=== PATIENT | male | born 1955 | race African-American/Black ===

== ENCOUNTER 2017-02-01 22:52 | Inpatient (IN) | payer BC ==
[~2017-02-01] VITALS: Ht 188 cm; Wt 102.0 kg
[~2017-02-01 22:52] MED LIST: AMLODIPINE BESYL5 MG PO; ASPIRIN LOW DOS81 M2 PO; ATORVASTATIN CA20 MG PO; BP MED; CEPHALEXIN500 MG PO; CIPRO500 MG PO; CORTISPORIN OTI10 M2 OU; DILTIAZEM240 MG PO; DOXYCYC MONO100 M1 PO; ENALAPRIL20 MG PO; GERITOL COMPLETE PO; GLIPIZIDE10 MG PO; HYDROCHLORO25 MG/TAB PO; JANUVIA100 MG PO; JOINT HEALT1 PO; K-TAB20 MEQ PO; KLOR-CON 1010 ME1 PO; LASIX 40 MG TAB40 MG PO; LEVEMIR FL100 UNIT/M SC; LEVEMIR FLEXPEN SC; LIPITOR20 M1 PO; LISINOP/HCTZ1 TA2 PO; MEDDOSEPAK PO; METFORMIN1000 MG PO; PROAIR HFA IN; VERAPAMIL240 M1 PO; VIAGRA50 MG PO; ZPAK PO
--- NOTE | 2017-02-01 23:10 | NUR ---
IN VIEW OF PATIENT'S LOW SPO2 HE WAS BROUGHT BACK TO ROOM 10 VIA W/C. DR. CHOWDHURY AND RESPIRATORY THERAPY NOTIFIED,
[2017-02-01] MEDS ORDERED: LEVEMIR FL100 UNIT/M SC (23:30)
[2017-02-01 23:41] LABS: HEMOGLOBIN 14.1 g/dl (14.0-18.0); IMMATURE GRANULOCYTES 0.4 % (0.0-1.0); MEAN CELL VOLUME 96.9 fL CALC (80.0-100.0); MEAN CORPUSCULAR HGB 31.1 pG CALC (26.0-32.0); NEUT# 3.06 thou/uL (1.82-7.42); RED BLOOD COUNT 4.54 mill/uL (4.70-6.10); RED CELL DISTRI WIDTH 14.6 % (11.5-15.5)
[2017-02-01 23:59] LABS: ALBUMIN 4.6 g/dL (3.2-5.0); ALKALINE PHOSPHATASE 53 u/l (38-126); ANION GAP 17 (6-22 (CALC)); BILIRUBIN, TOTAL 0.8 mg/dL (0.0-1.4); BUN 12 mg/dL (8-23); BUN/CREATININE RATIO 16 (12-20 (CALC)); CALCIUM 10.1 mg/dL (8.4-10.2); CARBON DIOXIDE 22 mmol/l (22-30); CHLORIDE 106 mmol/l (95-108); CREATININE 0.8 mg/dL (0.7-1.3); GFR > 60 ML/MIN (>=60 (CALC)); GFR FOR AFR.AMER. > 60 ML/MIN (>=60 (CALC)); GLUCOSE 109 mg/dL (82-115); POTASSIUM 3.6 mmol/l (3.5-5.1); SGOT/AST 33 u/l (19-48); SGPT/ALT 36 u/l (11-66); SODIUM 141 mmol/l (137-146); TOTAL PROTEIN 7.4 g/dL (6.3-8.2)
[2017-02-02] VITALS (16 sets, daily range): BP systolic 133–173; BP diastolic 65–111
--- NOTE | 2017-02-02 | NUR ---
AFTER BETA ALLI LASIX AND OXYGEN PATIENT IS RESTING COMFORTABLY. ABLE TO REST WITH HOB AT 30 DEGREE ANGLE.
[2017-02-02 00:10] LABS: MYOGLOBIN 30 ng/mL (0 - 121)
[2017-02-02 00:29] LABS: URINE BILIRUBIN - DIPSTICK NEGATIVE (NEGATIVE); URINE BLOOD DIPSTICK SMALL (NEGATIVE); URINE CLARITY CLEAR; URINE COLOR YELLOW; URINE GLUCOSE - DIPSTICK NEGATIVE (NEGATIVE); URINE KETONE NEGATIVE (NEGATIVE); URINE LEUK ESTERASE NEGATIVE (NEGATIVE); URINE NITRITE - DIPSTICK NEGATIVE (Negative); URINE PROTEIN - DIPSTICK 100 mg/dL (NEG-TRACE)
--- NOTE | 2017-02-02 00:38 | NUR ---
KARINAING AFTER THE IV LASIX. PATIENT INFORMED THAT DR. STEPHENS WANTS HIM IN THE ICU, AND THAT HE WILL BE REMAINING IN THE ER TONITE.
[2017-02-02 00:40] LABS: URINE RBC 0-2 RBC/hpf (0-5); URINE WBC 0-2 WBC/hpf (0-5)
--- NOTE | 2017-02-02 01:22 | NUR ---
61 yr old black male admitted er10 as icu pt. denies chest pain & sob. o2 cont per nc. 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 #20 rac & rfa saline locks. history obtained per er record & pt. fall precautions initiated. voided per urinal.
--- NOTE | 2017-02-02 01:34 | NUR ---
UPON RETURN FROM CT SCAN PATIENT TRANSFERRED TO BED. CARE HANDED OVER TO LIZ LOCKHART LPN FROM THE ICU.
--- NOTE | 2017-02-02 04:00 | NUR ---
RESTING QUIETLY. RESPS EVEN & UNLABORED. NO APPARENT DOSTRESS. O2 CONTS.
--- NOTE | 2017-02-02 05:45 | NUR ---
LAB HERE. BLOOD DRAWN.
--- NOTE | 2017-02-02 07:00 | NUR ---
report called to abilio trevino and to icu via bed.
--- NOTE | 2017-02-02 07:15 | NUR ---
PT ARRIVED TO THE UNIT VIA BED AND 2 STAFF MEMBER ASSISTANCE FROM ER. PT IS ALERT AND ORIENTATED. PLACED ON MONITOR. TELEMETRY SHOWS SR HR 84. KOREY IS 152/97. SPO2 IS 98% ON RA. PT STATES "I DONT WEAR OXYGEN AT HOME, BUT I SURE DID SLEEP GOOD WITH IT ON." PT LEFT ON 02 FOR COMFORT. DENIES PAIN OF ANY NATURE. ASSESSMENT PERFORMED. HISTORY OBTAINED IN ER. PT. DENIES NEED FOR BELONGINGS TO BE SENT TO [facility]AF[facility]. MEMBER OF FAMILY PRESENT AND IN ROOM. 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 PLACED ON ISOLATION PRECAUTIONS, PT STATES UNDERSTANDING. ROOM SET-UP, CALL LIGHT WITHIN REACH. INSTRUCTED PT TO CALL FOR ASSISTANCE, PT VERBALIZES UNDERSTANDING.
--- NOTE | 2017-02-02 08:26 | NUR ---
RT NOTIFIED OF STAT EKG.
[2017-02-02 09:48] LABS: CHOLESTEROL HDL RATIO 3.9 (<4.4 (CALC))
--- NOTE | 2017-02-02 10:29 | NUR ---
PT SLEEPING COMFORTABLY AT THIS TIME. AWAKENED FOR LEVEMIR SQ. PT DENIES CHEST PAIN. REPORTING OF CONCERNS ENCOURAGED.
--- NOTE | 2017-02-02 12:04 | NUR ---
PT SITTING ON SIDE OF BED. DENIES COMPLAINTS. NO CHEST PAIN. PLAN OF CARE, AWAITING SERIAL TROPONIN LEVELS DISCUSSED. PT STATES UNDERSTANDING.
--- NOTE | 2017-02-02 14:00 | NUR ---
DR. STEPHENS NOTIFIED OF RECENT RESULTS, EKG AND TROPONIN. DR. STEPHENS STATES HE WILL ENTER DISCHARGE ORDERS. PT UPDATED AND AGREES TO PLAN.
--- NOTE | 2017-02-02 15:06 | NUR ---
IVS'S REMOVED, DISCHARGE PAPER WORK REVIEWED. PT STATES UNDERSTANDING.
--- NOTE | 2017-02-02 15:08 | NUR ---
Discharge instructions given. Patient verbalizes understanding of same. Discharged in stable condition via Ambulatory to Home with family. All belongings sent with pt.
== END 2017-02-02 15:10 | disposition home or self-care (01) | DRG 313 ==
LOC: ENPENDDIS → ED 22:52 → ED-I 23:35 → ED 02-02 00:26 → ICU 02-02 00:27 → ED-I 02-02 00:27 → ICU 02-02 15:10
PROVIDERS: Emergency Medicine; ADMIT Internal Medicine Geriatric Medicine; ATTEND Internal Medicine Geriatric Medicine
DX: R07.9 Chest pain, unspecified (principal); E11.628 Type 2 diabetes mellitus with other skin complications; I16.1 Hypertensive emergency; I10 Essential (primary) hypertension; E78.5 Hyperlipidemia, unspecified; F17.210 Nicotine dependence, cigarettes, uncomplicated; G89.29 Other chronic pain; M54.5 Low back pain; E11.65 Type 2 diabetes mellitus with hyperglycemia; L84 Corns and callosities
CPT/HCPCS: Q9967

== ENCOUNTER 2017-02-28 18:05 | Observation (INO) | payer OTHER, BC ==
[~2017-02-28] VITALS: Ht 188 cm; Wt 99.2 kg
[2017-02-28 18:55] LABS: HEMATOCRIT 46.4 % (39.0-50.0); HEMOGLOBIN 15.1 g/dl (14.0-18.0); IMMATURE GRANULOCYTES 0.2 % (0.0-1.0); MEAN CELL VOLUME 94.3 fL CALC (80.0-100.0); MEAN CORPUSCULAR HGB 30.7 pG CALC (26.0-32.0); MEAN CORPUSCULAR HGB CONC 32.5 g/L CALC (32.0-36.0); NEUT# 2.6 thou/uL (1.82-7.42); RED BLOOD COUNT 4.92 mill/uL (4.70-6.10); RED CELL DISTRI WIDTH 12.9 % (11.5-15.5)
[2017-02-28 19:07] LABS: URINE BILIRUBIN - DIPSTICK NEGATIVE (NEGATIVE); URINE BLOOD DIPSTICK SMALL (NEGATIVE); URINE CLARITY CLEAR; URINE COLOR YELLOW; URINE GLUCOSE - DIPSTICK NEGATIVE (NEGATIVE); URINE KETONE NEGATIVE (NEGATIVE); URINE LEUK ESTERASE NEGATIVE (NEGATIVE); URINE NITRITE - DIPSTICK NEGATIVE (Negative); URINE PH 5.5 (4.5-8.0); URINE PROTEIN - DIPSTICK 100 mg/dL (NEG-TRACE); URINE SPECIFIC GRAVITY >=1.030; URINE UROBILINOGEN - DIPSTICK 0.2 E.U./dL (0.2)
[2017-02-28 19:15] LABS: ALKALINE PHOSPHATASE 49 u/l (38-126); ANION GAP 20 (6-22 (CALC)); BILIRUBIN, TOTAL 0.7 mg/dL (0.0-1.4); BUN 19 mg/dL (8-23); BUN/CREATININE RATIO 26 (12-20 (CALC)); CALCIUM 10.7 mg/dL (8.4-10.2); CARBON DIOXIDE 21 mmol/l (22-30); CHLORIDE 103 mmol/l (95-108); CREATININE 0.7 mg/dL (0.7-1.3); GFR > 60 ML/MIN (>=60 (CALC)); GFR FOR AFR.AMER. > 60 ML/MIN (>=60 (CALC)); GLUCOSE 165 mg/dL (82-115); POTASSIUM 4.1 mmol/l (3.5-5.1); SGOT/AST 35 u/l (19-48); SGPT/ALT 31 u/l (11-66); SODIUM 140 mmol/l (137-146); TOTAL PROTEIN 8.2 g/dL (6.3-8.2)
[2017-02-28 19:17] LABS: URINE WBC 0-2 WBC/hpf (0-5)
[2017-02-28 19:27] LABS: MYOGLOBIN 59 ng/mL (0 - 121)
[2017-02-28 22:00] VITALS: BP 133/84
[2017-03-01 04:00] VITALS: BP 125/86
[2017-03-01 06:47] LABS: HEMATOCRIT 45.5 % (39.0-50.0); HEMOGLOBIN 14.9 g/dl (14.0-18.0); IMMATURE GRANULOCYTES 0.4 % (0.0-1.0); MEAN CELL VOLUME 95.2 fL CALC (80.0-100.0); MEAN CORPUSCULAR HGB 31.2 pG CALC (26.0-32.0); MEAN CORPUSCULAR HGB CONC 32.7 g/L CALC (32.0-36.0); NEUT# 2.58 thou/uL (1.82-7.42); RED BLOOD COUNT 4.78 mill/uL (4.70-6.10); RED CELL DISTRI WIDTH 12.7 % (11.5-15.5)
[2017-03-01 07:01] LABS: ALBUMIN 4.3 g/dL (3.2-5.0); ALKALINE PHOSPHATASE 45 u/l (38-126); ANION GAP 13 (6-22 (CALC)); BUN 16 mg/dL (8-23); BUN/CREATININE RATIO 25 (12-20 (CALC)); CALCIUM 10.1 mg/dL (8.4-10.2); CARBON DIOXIDE 26 mmol/l (22-30); CHLORIDE 103 mmol/l (95-108); CREATININE 0.6 mg/dL (0.7-1.3); GFR > 60 ML/MIN (>=60 (CALC)); GFR FOR AFR.AMER. > 60 ML/MIN (>=60 (CALC)); GLUCOSE 141 mg/dL (82-115); POTASSIUM 4.3 mmol/l (3.5-5.1); SGOT/AST 21 u/l (19-48); SGPT/ALT 32 u/l (11-66); SODIUM 138 mmol/l (137-146); TOTAL PROTEIN 6.9 g/dL (6.3-8.2)
[2017-03-01 11:00] VITALS: BP 126/76
[2017-03-01 16:00] VITALS: BP 126/83; BP 131/72; BP 143/88
[2017-03-01 20:14] VITALS: BP 122/70
[2017-03-02 01:54] VITALS: BP 132/78
[2017-03-02 05:37] VITALS: BP 120/77
[2017-03-02 05:38] VITALS: BP 118/80; BP 129/85
[2017-03-02 08:05] VITALS: BP 126/57
[2017-03-02 09:29] VITALS: BP 126/57
== END 2017-03-02 09:04 | disposition home or self-care (01) | DRG 923 ==
LOC: ED 18:05 → ED-I 19:35 → ED 20:02 → MS2 20:03 → ED 20:07 → ED-I 20:07 → MS2 03-02 09:04
PROVIDERS: Emergency Medicine; ADMIT Internal Medicine Geriatric Medicine; ATTEND Internal Medicine Geriatric Medicine
DX: Z04.1 Encounter for examination and observation following transport accident (principal); I10 Essential (primary) hypertension; E11.9 Type 2 diabetes mellitus without complications; E78.5 Hyperlipidemia, unspecified; F17.210 Nicotine dependence, cigarettes, uncomplicated; I25.10 Atherosclerotic heart disease of native coronary artery without angina pectoris; G89.29 Other chronic pain; M54.5 Low back pain; M17.10 Unilateral primary osteoarthritis, unspecified knee; V48.5XXA Car driver injured in noncollision transport accident in traffic accident, initial encounter
CPT/HCPCS: G0378

== ENCOUNTER 2017-04-25 11:15 | Observation (INO) | payer BC ==
[~2017-04-25] VITALS: Ht 188 cm; Wt 93.8 kg
[2017-04-25 12:33] LABS: HEMATOCRIT 44.7 % (39.0-50.0); HEMOGLOBIN 14.9 g/dl (14.0-18.0); IMMATURE GRANULOCYTES 0.3 % (0.0-1.0); MEAN CELL VOLUME 88.2 fL CALC (80.0-100.0); MEAN CORPUSCULAR HGB 29.4 pG CALC (26.0-32.0); MEAN CORPUSCULAR HGB CONC 33.3 g/L CALC (32.0-36.0); NEUT# 3.92 thou/uL (1.82-7.42); RED BLOOD COUNT 5.07 mill/uL (4.70-6.10); RED CELL DISTRI WIDTH 12.1 % (11.5-15.5); URINE BILIRUBIN - DIPSTICK NEGATIVE (NEGATIVE); URINE BLOOD DIPSTICK NEGATIVE (NEGATIVE); URINE CLARITY CLEAR; URINE COLOR YELLOW; URINE GLUCOSE - DIPSTICK >=1000 mg/dL (NEGATIVE); URINE KETONE 15 mg/dL (NEGATIVE); URINE LEUK ESTERASE NEGATIVE (NEGATIVE); URINE NITRITE - DIPSTICK NEGATIVE (Negative); URINE PH 5.5 (4.5-8.0); URINE PROTEIN - DIPSTICK NEGATIVE (NEG-TRACE); URINE SPECIFIC GRAVITY <=1.005; URINE UROBILINOGEN - DIPSTICK 0.2 E.U./dL (0.2)
[2017-04-25 12:58] LABS: ALBUMIN 4.9 g/dL (3.2-5.0); BUN 28 mg/dL (8-23); BUN/CREATININE RATIO 34 (12-20 (CALC)); CREATININE 0.8 mg/dL (0.7-1.3); GFR > 60 ML/MIN (>=60 (CALC)); GFR FOR AFR.AMER. > 60 ML/MIN (>=60 (CALC)); TOTAL PROTEIN 8.1 g/dL (6.3-8.2)
[2017-04-25 13:11] LABS: GLUCOSE 640 mg/dL (82-115)
[2017-04-25 13:19] LABS: ANION GAP 22 (6-22 (CALC)); CARBON DIOXIDE 26 mmol/l (22-30); CHLORIDE 90 mmol/l (95-108); POTASSIUM 5.7 mmol/l (3.5-5.1); SODIUM 132 mmol/l (137-146)
[2017-04-25 13:20] LABS: ALKALINE PHOSPHATASE 97 u/l (38-126); CALCIUM 11.4 mg/dL (8.4-10.2); SGOT/AST 22 u/l (19-48); SGPT/ALT 25 u/l (11-66)
[2017-04-25 16:27] VITALS: BP 138/70
[2017-04-25 19:00] VITALS: BP 125/80
[2017-04-25 22:00] VITALS: BP 114/74
[2017-04-26 00:42] LABS: ANION GAP 15 (6-22 (CALC)); BUN 25 mg/dL (8-23); BUN/CREATININE RATIO 28 (12-20 (CALC)); CALCIUM 10.7 mg/dL (8.4-10.2); CARBON DIOXIDE 27 mmol/l (22-30); CHLORIDE 97 mmol/l (95-108); CREATININE 0.9 mg/dL (0.7-1.3); GFR > 60 ML/MIN (>=60 (CALC)); GFR FOR AFR.AMER. > 60 ML/MIN (>=60 (CALC)); GLUCOSE 387 mg/dL (82-115); POTASSIUM 4.2 mmol/l (3.5-5.1); SODIUM 135 mmol/l (137-146)
[2017-04-26 05:36] VITALS: BP 124/76
[2017-04-26 05:51] LABS: HEMATOCRIT 39.9 % (39.0-50.0); HEMOGLOBIN 13.2 g/dl (14.0-18.0); IMMATURE GRANULOCYTES 0.4 % (0.0-1.0); MEAN CELL VOLUME 88.9 fL CALC (80.0-100.0); MEAN CORPUSCULAR HGB 29.4 pG CALC (26.0-32.0); MEAN CORPUSCULAR HGB CONC 33.1 g/L CALC (32.0-36.0); NEUT# 2.38 thou/uL (1.82-7.42); RED BLOOD COUNT 4.49 mill/uL (4.70-6.10)
[2017-04-26 06:05] LABS: ANION GAP 15 (6-22 (CALC)); BUN 21 mg/dL (8-23); BUN/CREATININE RATIO 31 (12-20 (CALC)); CALCIUM 10.3 mg/dL (8.4-10.2); CARBON DIOXIDE 27 mmol/l (22-30); CHLORIDE 102 mmol/l (95-108); CREATININE 0.7 mg/dL (0.7-1.3); GFR > 60 ML/MIN (>=60 (CALC)); GFR FOR AFR.AMER. > 60 ML/MIN (>=60 (CALC)); GLUCOSE 229 mg/dL (82-115); MAGNESIUM 1.6 mg/dL (1.6-2.3); POTASSIUM 3.9 mmol/l (3.5-5.1); SODIUM 139 mmol/l (137-146)
[2017-04-26 07:31] VITALS: BP 132/77
[2017-04-26] MEDS ORDERED: GLIPIZIDE5 M2 PO (14:38)
[2017-04-26 15:37] VITALS: BP 107/67
[2017-04-26 19:45] VITALS: BP 118/70
[2017-04-27 04:20] VITALS: BP 128/78
[2017-04-27 07:55] VITALS: BP 144/85
[2017-04-27] MEDS ORDERED: ENALAPRIL20 MG PO (11:36)
== END 2017-04-27 12:47 | disposition home or self-care (01) | DRG 638 ==
LOC: ED 11:15 → ED-I 13:50 → ED 14:12 → MS2 14:13
PROVIDERS: Emergency Medicine; Internal Medicine; Nurse Practitioner Family; ADMIT Internal Medicine; ATTEND Internal Medicine
DX: E11.65 Type 2 diabetes mellitus with hyperglycemia (principal); I42.9 Cardiomyopathy, unspecified; I11.0 Hypertensive heart disease with heart failure; I50.20 Unspecified systolic (congestive) heart failure; E11.51 Type 2 diabetes mellitus with diabetic peripheral angiopathy without gangrene; F17.210 Nicotine dependence, cigarettes, uncomplicated; Z79.4 Long term (current) use of insulin; E78.5 Hyperlipidemia, unspecified; Z95.810 Presence of automatic (implantable) cardiac defibrillator; Z79.82 Long term (current) use of aspirin
CPT/HCPCS: G0378

== ENCOUNTER → 2018-04-12 | Outpatient (REF) | payer BC ==
[~2018-04-12] MED LIST changes: +GLIPIZIDE5 M2 PO
== END | disposition home or self-care (01) | DRG 204 ==
LOC: RT 12:13
PROVIDERS: ATTEND Nurse Practitioner Family
DX: R05 Cough (principal)

== ENCOUNTER 2019-12-10 06:46 | Day surgery (SDC) | payer BC ==
[~2019-12-10 06:46] MED LIST changes: +BRILINTA90 MG PO; +CARTIA XT180 MG PO; +ENTRESTO 97-1031 TAB PO; +FARXIGA5 MG PO; +METOPROL TAR25 MG PO; +SUPER B COMP PO; +TAMSULOSIN HCL0.4 MG PO
[2019-12-10] MEDS ORDERED: PERCOCET 5/325M1 TAB PO (10:19)
[2019-12-10 11:01] VITALS: BP 145/69
== END 2019-12-10 11:14 | disposition home or self-care (01) | DRG 349 ==
LOC: ORM 06:46
PROVIDERS: ATTEND Surgery
PROC: 06BY3ZC Excision of Hemorrhoidal Plexus, Percutaneous Approach (ICD-10-PCS; principal; 2019-12-10)
DX: K64.8 Other hemorrhoids (principal); K64.4 Residual hemorrhoidal skin tags; I10 Essential (primary) hypertension; E11.9 Type 2 diabetes mellitus without complications; Z79.4 Long term (current) use of insulin; Z11.59 Encounter for screening for other viral diseases
CPT/HCPCS: C9290; J0131; J1100

== ENCOUNTER 2021-11-02 14:20 | Emergency (ER) | payer MEDICARE ==
[~2021-11-02] VITALS: Ht 185.4 cm; Wt 85.9 kg
[2021-11-02] VITALS (7 sets, daily range): BP systolic 112–124; BP diastolic 45–63
[~2021-11-02 14:20] MED LIST changes: +METOPROLOL SUCC50 MG PO; +OMEPRAZOLE20 MG PO; +PERCOCET 5/325M1 TAB PO; +PROTONIX40 M2 PO
[2021-11-02] MEDS ORDERED: CIPROFLOXACN500 MG PO (14:53)
[2021-11-02] MEDS ORDERED: FLONASE AL50 MCG/ACT (14:54)
[2021-11-02] MEDS ORDERED: SILDENAFIL100 MG (14:55)
[2021-11-02] MEDS ORDERED: METRONIDAZOLE250 MG PO (14:55)
[2021-11-02] MEDS ORDERED: TAMSULOSIN HCL0.4 MG PO (14:55)
[2021-11-02] MEDS ORDERED: VITAMIN D2400 UNIT PO (14:56)
[2021-11-02 15:11] LABS: IMMATURE GRANULOCYTES 0.3 % (0.0-5.0); MEAN CORPUSCULAR HGB 26.8 pG CALC (26.0-32.0); MEAN CORPUSCULAR HGB CONC 29.7 g/dL CAL (32.0-36.0); NEUT# 9.53 thou/uL (1.82-7.42); RED BLOOD COUNT 2.13 mill/uL (4.70-6.10); RED CELL DISTRI WIDTH 17.2 % (11.5-15.5)
[2021-11-02 15:14] LABS: HEMOGLOBIN 5.7 g/dl (14.0-18.0); MEAN CELL VOLUME 90.1 fL CALC (80.0-100.0)
[2021-11-02 15:15] LABS: HEMATOCRIT 19.2 % (39.0-50.0)
[2021-11-02 15:29] LABS: ALBUMIN 3.1 g/dL (3.2-5.0); BUN 27 mg/dL (8-23); BUN/CREATININE RATIO 31 (12-20 (CALC)); CHLORIDE 103 mmol/l (95-108); CREATININE 0.9 mg/dL (0.7-1.3); GFR > 60 ML/MIN (>=60 (CALC)); GFR FOR AFR.AMER. > 60 ML/MIN (>=60 (CALC)); LIPASE 173 u/l (23-300); MAGNESIUM 1.8 mg/dL (1.6-2.3); SODIUM 132 mmol/l (137-146); TOTAL PROTEIN 6.2 g/dL (6.3-8.2)
[2021-11-02 15:30] LABS: ALKALINE PHOSPHATASE 111 u/l (38-126); ANION GAP 14 (6-22 (CALC)); CARBON DIOXIDE 20 mmol/l (22-30); POTASSIUM 4.9 mmol/l (3.5-5.1); SGOT/AST 23 u/l (19-48)
[2021-11-02 15:33] LABS: INTERNATIONAL NORMALIZED RATIO 1.1 RATIO (0.7-1.3); PROTHROMBIN TIME 11.7 SECONDS (9.0-12.5)
== END 2021-11-02 18:24 | disposition short-term general hospital (02) ==
LOC: ED 14:20
PROVIDERS: Internal Medicine
PROC: 30233N1 Transfusion of Nonautologous Red Blood Cells into Peripheral Vein, Percutaneous Approach (ICD-10-PCS; principal; 2021-11-02)
DX: K92.1 Melena (principal); D64.9 Anemia, unspecified; I10 Essential (primary) hypertension; E11.9 Type 2 diabetes mellitus without complications; Z95.0 Presence of cardiac pacemaker; Z79.84 Long term (current) use of oral hypoglycemic drugs
CPT/HCPCS: P9016; Q9967; S0164

== ENCOUNTER 2021-11-17 07:53 | Observation (INO) | payer MEDICARE ==
[~2021-11-17] VITALS: Ht 185.4 cm; Wt 101.2 kg
[2021-11-17] VITALS (21 sets, daily range): BP systolic 88–192; BP diastolic 31–124
[~2021-11-17 07:53] MED LIST changes: +CIPROFLOXACN500 MG PO; +FLONASE AL50 MCG/ACT; +METRONIDAZOLE250 MG PO; +SILDENAFIL100 MG; +VITAMIN D2400 UNIT PO
[2021-11-17 08:31] LABS: IMMATURE GRANULOCYTES 1.6 % (0.0-5.0); MEAN CELL VOLUME 85.1 fL CALC (80.0-100.0); MEAN CORPUSCULAR HGB 26.6 pG CALC (26.0-32.0); MEAN CORPUSCULAR HGB CONC 31.3 g/dL CAL (32.0-36.0); NEUT# 12.02 thou/uL (1.82-7.42); RED BLOOD COUNT 3.08 mill/uL (4.70-6.10)
[2021-11-17 08:37] LABS: HEMATOCRIT 26.2 % (39.0-50.0); HEMOGLOBIN 8.2 g/dl (14.0-18.0)
[2021-11-17 08:44] LABS: BUN 10 mg/dL (8-23); BUN/CREATININE RATIO 22 (12-20 (CALC)); CHLORIDE 101 mmol/l (95-108); CREATININE 0.5 mg/dL (0.7-1.3); GFR > 60 ML/MIN (>=60 (CALC)); GFR FOR AFR.AMER. > 60 ML/MIN (>=60 (CALC)); LIPASE 64 u/l (23-300); MAGNESIUM 1.5 mg/dL (1.6-2.3); SGOT/AST 29 u/l (19-48); SODIUM 135 mmol/l (137-146); TOTAL PROTEIN 5.6 g/dL (6.3-8.2)
[2021-11-17 08:58] LABS: ALBUMIN 2.3 g/dL (3.2-5.0); ALKALINE PHOSPHATASE 326 u/l (38-126); ANION GAP 11 (6-22 (CALC)); BILIRUBIN, TOTAL 1.6 mg/dL (0.0-1.4); CARBON DIOXIDE 26 mmol/l (22-30); POTASSIUM 2.6 mmol/l (3.5-5.1)
[2021-11-17] MEDS ORDERED: PROTONIX40 M2 PO (08:58)
[2021-11-17] MEDS ORDERED: CREON12000 UNT PO (08:59)
[2021-11-17] MEDS ORDERED: EZETIMIBE10 MG PO (08:59)
[2021-11-17] MEDS ORDERED: LISINOPRIL10 MG PO (09:00)
[2021-11-17] MEDS ORDERED: CEFEPIME2 GM IV (10:50)
[2021-11-17] MEDS ORDERED: FARXIGA10 MG PO (10:52)
[2021-11-17] MEDS ORDERED: ATORVASTATIN CA20 MG PO (10:54)
[2021-11-18 00:43] VITALS: BP 164/68
[2021-11-18 04:06] VITALS: BP 152/68
[2021-11-18 05:17] LABS: HEMATOCRIT 25.2 % (39.0-50.0); MEAN CELL VOLUME 85.1 fL CALC (80.0-100.0); MEAN CORPUSCULAR HGB CONC 31.7 g/dL CAL (32.0-36.0); RED BLOOD COUNT 2.96 mill/uL (4.70-6.10); RED CELL DISTRI WIDTH 21.7 % (11.5-15.5)
[2021-11-18 05:37] LABS: BUN 7 mg/dL (8-23); BUN/CREATININE RATIO 17 (12-20 (CALC)); CARBON DIOXIDE 25 mmol/l (22-30); CHLORIDE 103 mmol/l (95-108); CREATININE 0.4 mg/dL (0.7-1.3); GFR > 60 ML/MIN (>=60 (CALC)); GFR FOR AFR.AMER. > 60 ML/MIN (>=60 (CALC)); MAGNESIUM 1.7 mg/dL (1.6-2.3); SODIUM 136 mmol/l (137-146)
[2021-11-18 05:44] LABS: ANION GAP 11 (6-22 (CALC)); POTASSIUM 3.2 mmol/l (3.5-5.1)
[2021-11-18 06:40] VITALS: BP 146/79
[2021-11-18 10:00] VITALS: BP 135/62
[2021-11-18 10:26] VITALS: BP 135/62
== END 2021-11-18 12:50 | disposition home or self-care (01) ==
LOC: ED 07:53 → ED-I 08:01 → ED 10:37 → MS2 10:38
PROVIDERS: Family Medicine; ADMIT Hospitalist; ATTEND Hospitalist
DX: E11.649 Type 2 diabetes mellitus with hypoglycemia without coma (principal); E87.6 Hypokalemia; E83.42 Hypomagnesemia; R68.0 Hypothermia, not associated with low environmental temperature; D64.9 Anemia, unspecified; E11.51 Type 2 diabetes mellitus with diabetic peripheral angiopathy without gangrene; K83.09 Other cholangitis; I10 Essential (primary) hypertension; F17.200 Nicotine dependence, unspecified, uncomplicated; Z95.0 Presence of cardiac pacemaker; Z79.84 Long term (current) use of oral hypoglycemic drugs; Z79.4 Long term (current) use of insulin; Z95.810 Presence of automatic (implantable) cardiac defibrillator; Z20.822 Contact with and (suspected) exposure to COVID-19
CPT/HCPCS: J0692; J3475

== ENCOUNTER 2021-11-22 14:31 | Inpatient (IN) | payer MEDICARE ==
[2021-11-22] VITALS (10 sets, daily range): BP systolic 81–168; BP diastolic 52–101
[~2021-11-22] VITALS: Ht 185.4 cm; Wt 93.0 kg
[~2021-11-22 14:31] MED LIST changes: +CEFEPIME2 GM IV; +CREON12000 UNT PO; +EZETIMIBE10 MG PO; +FARXIGA10 MG PO; +LISINOPRIL10 MG PO
[2021-11-22 15:09] LABS: HEMATOCRIT 29.4 % (39.0-50.0); IMMATURE GRANULOCYTES 0.3 % (0.0-5.0); MEAN CELL VOLUME 84.2 fL CALC (80.0-100.0); MEAN CORPUSCULAR HGB 25.8 pG CALC (26.0-32.0); MEAN CORPUSCULAR HGB CONC 30.6 g/dL CAL (32.0-36.0); NEUT# 15.73 thou/uL (1.82-7.42); RED BLOOD COUNT 3.49 mill/uL (4.70-6.10); RED CELL DISTRI WIDTH 21.7 % (11.5-15.5)
[2021-11-22 15:24] LABS: ALBUMIN 2.4 g/dL (3.2-5.0); ALKALINE PHOSPHATASE 315 u/l (38-126); ANION GAP 9 (6-22 (CALC)); BILIRUBIN, TOTAL 1.5 mg/dL (0.0-1.4); BUN 10 mg/dL (8-23); BUN/CREATININE RATIO 22 (12-20 (CALC)); CARBON DIOXIDE 25 mmol/l (22-30); CHLORIDE 104 mmol/l (95-108); CREATININE 0.5 mg/dL (0.7-1.3); GFR > 60 ML/MIN (>=60 (CALC)); GFR FOR AFR.AMER. > 60 ML/MIN (>=60 (CALC)); POTASSIUM 2.8 mmol/l (3.5-5.1); SGOT/AST 30 u/l (19-48); SODIUM 135 mmol/l (137-146); TOTAL PROTEIN 5.7 g/dL (6.3-8.2)
[2021-11-22 15:44] LABS: URINE BILIRUBIN - DIPSTICK NEGATIVE (NEGATIVE); URINE BLOOD DIPSTICK TRACE-INTACT (NEGATIVE); URINE COLOR YELLOW; URINE GLUCOSE - DIPSTICK NEGATIVE (NEGATIVE); URINE KETONE TRACE mg/dL (NEGATIVE); URINE LEUK ESTERASE NEGATIVE (NEGATIVE); URINE PROTEIN - DIPSTICK 30 mg/dL (NEG-TRACE); URINE UROBILINOGEN - DIPSTICK 0.2 E.U./dL (0.2)
[2021-11-22 15:46] LABS: URINE NITRITE - DIPSTICK NEGATIVE (Negative)
[2021-11-22 15:54] LABS: URINE RBC 0-2 RBC/hpf (0-5); URINE WBC 0-2 WBC/hpf (0-5)
[2021-11-22 18:04] LABS: C-REACTIVE PROTEIN 7.2 mg/dL (0-0.9)
[2021-11-23] VITALS (12 sets, daily range): BP systolic 125–183; BP diastolic 63–87
[2021-11-23 05:54] LABS: HEMATOCRIT 24.2 % (39.0-50.0); HEMOGLOBIN 7.6 g/dl (14.0-18.0); MEAN CELL VOLUME 85.2 fL CALC (80.0-100.0); MEAN CORPUSCULAR HGB 26.8 pG CALC (26.0-32.0); MEAN CORPUSCULAR HGB CONC 31.4 g/dL CAL (32.0-36.0); RED BLOOD COUNT 2.84 mill/uL (4.70-6.10); RED CELL DISTRI WIDTH 22.4 % (11.5-15.5)
[2021-11-23 06:07] LABS: ALKALINE PHOSPHATASE 313 u/l (38-126); ANION GAP 11 (6-22 (CALC)); BILIRUBIN, TOTAL 1.4 mg/dL (0.0-1.4); BUN 8 mg/dL (8-23); BUN/CREATININE RATIO 18 (12-20 (CALC)); CARBON DIOXIDE 28 mmol/l (22-30); CHLORIDE 102 mmol/l (95-108); CREATININE 0.4 mg/dL (0.7-1.3); GFR > 60 ML/MIN (>=60 (CALC)); GFR FOR AFR.AMER. > 60 ML/MIN (>=60 (CALC)); MAGNESIUM 1.6 mg/dL (1.6-2.3); POTASSIUM 2.9 mmol/l (3.5-5.1); SGOT/AST 19 u/l (19-48); SODIUM 137 mmol/l (137-146)
[2021-11-23] MEDS ORDERED: ATORVASTATIN CA40 MG PO (10:03)
[2021-11-23] MEDS ORDERED: LISINOPRIL20 M1 PO (10:04)
[2021-11-23] MEDS ORDERED: METRONIDAZOLE500 MG PO (10:06)
[2021-11-23] MEDS ORDERED: FLUTICASON50 MCG/ACT NAB (10:09)
[2021-11-24] VITALS (7 sets, daily range): BP systolic 110–167; BP diastolic 68–88
[2021-11-24 05:53] LABS: HEMATOCRIT 24.7 % (39.0-50.0); HEMOGLOBIN 7.6 g/dl (14.0-18.0); MEAN CELL VOLUME 85.8 fL CALC (80.0-100.0); MEAN CORPUSCULAR HGB 26.4 pG CALC (26.0-32.0); MEAN CORPUSCULAR HGB CONC 30.8 g/dL CAL (32.0-36.0); RED BLOOD COUNT 2.88 mill/uL (4.70-6.10); RED CELL DISTRI WIDTH 22.5 % (11.5-15.5)
[2021-11-24 06:12] LABS: ALKALINE PHOSPHATASE 310 u/l (38-126); ANION GAP 9 (6-22 (CALC)); BILIRUBIN, TOTAL 1.5 mg/dL (0.0-1.4); BUN 9 mg/dL (8-23); BUN/CREATININE RATIO 22 (12-20 (CALC)); CARBON DIOXIDE 29 mmol/l (22-30); CHLORIDE 102 mmol/l (95-108); CREATININE 0.4 mg/dL (0.7-1.3); GFR > 60 ML/MIN (>=60 (CALC)); GFR FOR AFR.AMER. > 60 ML/MIN (>=60 (CALC)); MAGNESIUM 1.5 mg/dL (1.6-2.3); POTASSIUM 3.1 mmol/l (3.5-5.1); SGOT/AST 21 u/l (19-48); SODIUM 136 mmol/l (137-146)
[2021-11-24 06:35] LABS: INTERNATIONAL NORMALIZED RATIO 2.1 RATIO (0.7-1.3); PROTHROMBIN TIME 21.2 SECONDS (9.0-12.5)
[2021-11-25 00:02] VITALS: BP 131/70
[2021-11-25 04:40] VITALS: BP 115/65
[2021-11-25 06:12] LABS: ALKALINE PHOSPHATASE 308 u/l (38-126); ANION GAP 9 (6-22 (CALC)); BILIRUBIN, TOTAL 1.4 mg/dL (0.0-1.4); BUN 10 mg/dL (8-23); BUN/CREATININE RATIO 25 (12-20 (CALC)); CARBON DIOXIDE 30 mmol/l (22-30); CHLORIDE 100 mmol/l (95-108); CREATININE 0.4 mg/dL (0.7-1.3); GFR > 60 ML/MIN (>=60 (CALC)); GFR FOR AFR.AMER. > 60 ML/MIN (>=60 (CALC)); MAGNESIUM 1.4 mg/dL (1.6-2.3); POTASSIUM 2.8 mmol/l (3.5-5.1); SGOT/AST 22 u/l (19-48); SODIUM 136 mmol/l (137-146)
[2021-11-25 06:13] LABS: HEMATOCRIT 24.6 % (39.0-50.0); HEMOGLOBIN 7.6 g/dl (14.0-18.0); IMMATURE GRANULOCYTES 0.7 % (0.0-5.0); MEAN CELL VOLUME 85.4 fL CALC (80.0-100.0); MEAN CORPUSCULAR HGB 26.4 pG CALC (26.0-32.0); MEAN CORPUSCULAR HGB CONC 30.9 g/dL CAL (32.0-36.0); NEUT# 10.38 thou/uL (1.82-7.42); RED BLOOD COUNT 2.88 mill/uL (4.70-6.10); RED CELL DISTRI WIDTH 22.4 % (11.5-15.5)
[2021-11-25 07:11] VITALS: BP 118/67
[2021-11-25 10:30] VITALS: BP 153/73
[2021-11-25 14:35] VITALS: BP 147/87
[2021-11-25 18:44] VITALS: BP 143/77
[2021-11-26 00:01] VITALS: BP 149/83
[2021-11-26 03:25] VITALS: BP 145/81
[2021-11-26 05:18] LABS: HEMATOCRIT 28.4 % (39.0-50.0); HEMOGLOBIN 8.7 g/dl (14.0-18.0); IMMATURE GRANULOCYTES 0.4 % (0.0-5.0); MEAN CELL VOLUME 84.8 fL CALC (80.0-100.0); MEAN CORPUSCULAR HGB CONC 30.6 g/dL CAL (32.0-36.0); NEUT# 12.07 thou/uL (1.82-7.42); RED BLOOD COUNT 3.35 mill/uL (4.70-6.10); RED CELL DISTRI WIDTH 22.7 % (11.5-15.5)
[2021-11-26 06:57] VITALS: BP 140/80
[2021-11-26 07:02] LABS: ALBUMIN 2.3 g/dL (3.2-5.0); ALKALINE PHOSPHATASE 361 u/l (38-126); ANION GAP 11 (6-22 (CALC)); BILIRUBIN, TOTAL 1.6 mg/dL (0.0-1.4); BUN 11 mg/dL (8-23); BUN/CREATININE RATIO 23 (12-20 (CALC)); CARBON DIOXIDE 30 mmol/l (22-30); CHLORIDE 100 mmol/l (95-108); CREATININE 0.5 mg/dL (0.7-1.3); GFR > 60 ML/MIN (>=60 (CALC)); GFR FOR AFR.AMER. > 60 ML/MIN (>=60 (CALC)); MAGNESIUM 1.9 mg/dL (1.6-2.3); SGOT/AST 23 u/l (19-48); SODIUM 138 mmol/l (137-146); TOTAL PROTEIN 5.7 g/dL (6.3-8.2)
[2021-11-26 10:24] VITALS: BP 157/85
[2021-11-26 14:46] VITALS: BP 145/83
[2021-11-26 19:29] VITALS: BP 159/79
[2021-11-27 00:05] VITALS: BP 148/71
[2021-11-27 04:31] VITALS: BP 132/76
[2021-11-27 05:04] LABS: HEMOGLOBIN 8.2 g/dl (14.0-18.0); IMMATURE GRANULOCYTES 0.4 % (0.0-5.0); MEAN CELL VOLUME 84.9 fL CALC (80.0-100.0); MEAN CORPUSCULAR HGB 25.8 pG CALC (26.0-32.0); MEAN CORPUSCULAR HGB CONC 30.4 g/dL CAL (32.0-36.0); NEUT# 12.8 thou/uL (1.82-7.42); RED BLOOD COUNT 3.18 mill/uL (4.70-6.10); RED CELL DISTRI WIDTH 22.8 % (11.5-15.5)
[2021-11-27 05:24] LABS: ALBUMIN 2.2 g/dL (3.2-5.0); ALKALINE PHOSPHATASE 386 u/l (38-126); AMYLASE 51 u/l (30-110); BILIRUBIN, TOTAL 1.4 mg/dL (0.0-1.4); BUN 15 mg/dL (8-23); BUN/CREATININE RATIO 28 (12-20 (CALC)); CARBON DIOXIDE 29 mmol/l (22-30); CHLORIDE 102 mmol/l (95-108); CREATININE 0.5 mg/dL (0.7-1.3); GFR > 60 ML/MIN (>=60 (CALC)); GFR FOR AFR.AMER. > 60 ML/MIN (>=60 (CALC)); LIPASE 73 u/l (23-300); MAGNESIUM 1.9 mg/dL (1.6-2.3); SGOT/AST 23 u/l (19-48); SODIUM 139 mmol/l (137-146); TOTAL PROTEIN 5.3 g/dL (6.3-8.2)
[2021-11-27 05:25] LABS: ANION GAP 12 (6-22 (CALC))
[2021-11-27 07:10] VITALS: BP 157/59
[2021-11-27 10:17] VITALS: BP 147/75
[2021-11-27 19:20] VITALS: BP 173/88
[2021-11-27 20:50] VITALS: BP 168/102
[2021-11-28 01:06] VITALS: BP 184/77
[2021-11-28 01:31] VITALS: BP 167/74
[2021-11-28 03:34] VITALS: BP 167/78
[2021-11-28 05:58] LABS: ALBUMIN 2.1 g/dL (3.2-5.0); ALKALINE PHOSPHATASE 370 u/l (38-126); ANION GAP 11 (6-22 (CALC)); BILIRUBIN, TOTAL 1.1 mg/dL (0.0-1.4); BUN 18 mg/dL (8-23); BUN/CREATININE RATIO 38 (12-20 (CALC)); CARBON DIOXIDE 27 mmol/l (22-30); CHLORIDE 101 mmol/l (95-108); CREATININE 0.5 mg/dL (0.7-1.3); GFR > 60 ML/MIN (>=60 (CALC)); GFR FOR AFR.AMER. > 60 ML/MIN (>=60 (CALC)); MAGNESIUM 1.8 mg/dL (1.6-2.3); POTASSIUM 4.1 mmol/l (3.5-5.1); SGOT/AST 22 u/l (19-48); SODIUM 136 mmol/l (137-146); TOTAL PROTEIN 5.2 g/dL (6.3-8.2)
[2021-11-28 06:40] VITALS: BP 139/77
[2021-11-28 10:26] VITALS: BP 186/102
[2021-11-28] MEDS ORDERED: ALDACTONE25 MG PO (10:30)
[2021-11-28] MEDS ORDERED: LASIX 40 MG TAB40 MG PO (10:31)
[2021-11-28] MEDS ORDERED: OXYCODONE5 M1 PO (10:33)
== END 2021-11-28 11:19 | disposition home health service (06) | DRG 436 ==
LOC: ED 14:31 → ED-I 17:09 → ED 17:23 → MS2 17:24
PROVIDERS: Family Medicine; Nurse Practitioner; ADMIT Internal Medicine; ATTEND Internal Medicine
PROC: 0FB13ZX Excision of Right Lobe Liver, Percutaneous Approach, Diagnostic (ICD-10-PCS; principal; 2021-11-23)
DX: C78.7 Secondary malignant neoplasm of liver and intrahepatic bile duct (principal); K83.09 Other cholangitis; C25.9 Malignant neoplasm of pancreas, unspecified; C22.1 Intrahepatic bile duct carcinoma; I50.22 Chronic systolic (congestive) heart failure; I42.8 Other cardiomyopathies; I11.0 Hypertensive heart disease with heart failure; E87.6 Hypokalemia; E83.42 Hypomagnesemia; G89.3 Neoplasm related pain (acute) (chronic); D64.9 Anemia, unspecified; E11.51 Type 2 diabetes mellitus with diabetic peripheral angiopathy without gangrene; I25.10 Atherosclerotic heart disease of native coronary artery without angina pectoris; E78.5 Hyperlipidemia, unspecified; F17.200 Nicotine dependence, unspecified, uncomplicated; Z96.89 Presence of other specified functional implants; Z95.810 Presence of automatic (implantable) cardiac defibrillator; Z87.19 Personal history of other diseases of the digestive system; Z20.822 Contact with and (suspected) exposure to COVID-19
CPT/HCPCS: J0692; J1650; J3475; Q9967

== ENCOUNTER → 2021-12-13 | Emergency (ER) | payer MEDICARE ==
[~2021-12-13] MED LIST changes: +ALDACTONE25 MG PO; +ATORVASTATIN CA40 MG PO; +FLUTICASON50 MCG/ACT NAB; +LISINOPRIL20 M1 PO; +METRONIDAZOLE500 MG PO; +OXYCODONE5 M1 PO
== END | disposition expired ==
LOC: ED 09:40
PROC: 5A12012 Performance of Cardiac Output, Single, Manual (ICD-10-PCS; principal; 2021-12-13)
DX: I46.9 Cardiac arrest, cause unspecified (principal); I10 Essential (primary) hypertension; E11.9 Type 2 diabetes mellitus without complications; Z95.0 Presence of cardiac pacemaker